=== PATIENT | male | born 1970 | race Caucasian/White ===

== ENCOUNTER → 2018-03-09 | Outpatient (CLI) | payer OTHER | LOC: MRI 09:49 | DX: M47.22 Other spondylosis with radiculopathy, cervical region (principal); M41.82 Other forms of scoliosis, cervical region; M48.02 Spinal stenosis, cervical region; M50.121 Cervical disc disorder at C4-C5 level with radiculopathy; R60.0 Localized edema ==

== ENCOUNTER → 2019-10-11 | Outpatient (CLI) | payer OTHER | LOC: CAT 08:29 | PROVIDERS: ATTEND Family Medicine | DX: Z13.6 Encounter for screening for cardiovascular disorders (principal); I25.10 Atherosclerotic heart disease of native coronary artery without angina pectoris; E78.00 Pure hypercholesterolemia, unspecified ==